=== PATIENT | female | born 1965 | race Asian ===

== ENCOUNTER 2025-03-05 12:10 | Emergency (ER) | payer SELFPAY ==
[2025-03-05 12:10] VITALS: BP 160/90; PULSE 84; RESP 16; TEMP 36.6; O2SAT 97
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
--- NOTE | 2025-03-05 13:30 | RT.EKG_ITS ---
APPROVED REPORT Exam: Resting ECG Reason for Exam: Chest pain Patient Location: E HR:81 bpm ECG Measurements Heart Rate 81 AXIS IL 130 P 25 QRSd 88 QRS 71 QT 366 T -1 QTc 424 Conclusion Sinus rhythm...normal P axis, V-rate 60- 99 No Occlusion OR
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
[2025-03-05 14:25] LABS: Abs Immature Grans 0.03 10^3/uL (0.0-0.06); HCT 44.1 % (36.0-46.0); HGB 14.3 g/dL (11.2-15.7); Immature Grans % 0.4 %; MCH 28.8 pg (27.0-33.0); MCHC 32.4 % (32.0-36.0); MCV 89 fL (80-95); MPV 10.3 fL (8.0-11.0); Platelet Count 269 10^3/uL (130-400); RBC 4.96 10^6/uL (3.93-5.22); RDW 11.9 % (11.7-14.6); RDW-SD 38.7 fL; WBC 7.33 10^3/uL (4.4-10.8)
[2025-03-05 14:45] LABS: Anion Gap 9.6 mmol/L (3-11); BUN 12 mg/dL (7-18); CO2 28.4 mmol/L (21.0-32.0); Calcium 9.1 mg/dL (8.5-10.1); Chloride 103 mmol/L (98-107); Estimated GFR 98.34 (mL/min/1.73m2); Glucose 103 mg/dL (74-106); Potassium 3.7 mmol/L (3.5-5.1); Sodium 141 mmol/L (136-145); Troponin I 6 ng/L (<or=51)
[2025-03-05] MEDS: Normal Saline - Diluent 50 ML VIAL IJ (14:58)
[2025-03-05] MEDS: Normal Saline Flush 10 ML SYR IVP (14:59)
[2025-03-05] MEDS: Omnipaque 350 MG/ML 100 ML BTL IJ (14:59)
[2025-03-05] MEDS: Ibuprofen 400 MG TAB PO (15:52)
[2025-03-05] MEDS: Acetaminophen 325 MG TAB 650 MG PO (15:53)
[2025-03-05 16:22] LABS: Troponin I 5 ng/L (<or=51)
[2025-03-05 16:49] VITALS: BP 152/87; PULSE 82; RESP 16; TEMP 37.1; O2SAT 100
== END 2025-03-05 16:53 | disposition home or self-care (01) ==
PROVIDERS: Emergency Provider Emergency Medicine
DX: R07.89 Other chest pain (principal); R06.02 Shortness of breath; M54.2 Cervicalgia; V47.6XXA Car passenger injured in collision with fixed or stationary object in traffic accident, initial encounter
CPT/HCPCS: 99284; 99285; 36415; 74177; 80048; 93005; 70450; 71260; 72125; 84484; 85025; 93010; J3490